=== PATIENT | male | born 1990 | race Caucasian/White ===

== ENCOUNTER 2019-03-24 03:31 | Emergency (ER) | payer BC, MEDICAID ==
[2019-03-24] MEDS ORDERED: Hydrocortisone/Neomycin/Polymyxin B Ophth Susp 7.5 ML Bottle ONE (03:32)
[2019-03-24] MEDS ORDERED: traMADol 50 MG Tab PO ONE (03:32)
[2019-03-24 03:45] VITALS: BP 136/79; PULSE 61
--- NOTE | 2019-03-24 03:51 | EDM.PDOC ---
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 Yesterday he was welding but he reports using protection Bilateral eyes Pain Score (Numeric/FACES): 7 - Related Data Allergies Allergy/AdvReac Type Severity Reaction Status Date / Time cefaclor [From Ceclor] Allergy Other Verified 03/24/19 03:39 Home Meds: Home Meds NK [No Known Home Meds] 02/02/15 [History] Past Medical History - Past Surgical History GI Surgical History: Reports: Appendectomy Social & Family History - Tobacco Use Smoking Status *Q: Never Smoker Second Hand Smoke Exposure: No - Caffeine Use Caffeine Use: Reports: Soda - Recreational Drug Use Recreational Drug Use: No ED ROS GENERAL - Review of Systems Review Of Systems: Comprehensive ROS is negative, except as noted in HPI. ED EXAM GENERAL W FULL EYE - Physical Exam Exam: See Below Exam Limited By: No Limitations General Appearance: Alert, WD/WN, No Apparent Distress Visual Acuity (R) 20/: 50 Visual Acuity (L) 20/: 30 With Correction: No Eyelids: Bilateral: Normal Appearance, Erythema Conjunctiva & Sclera: Bilateral: Injected Cornea Exam: Bilateral: Normal Appearance Extraocular Movements: Right: Disconjugate Gaze, Bilateral: Intact Pupils: Normal Accommodation Pupillary Size: Bilateral: 3 mm Pupillary Reaction: Bilateral: Brisk Anterior Chamber: Bilateral: Normal Appearance Posterior Chamber: Bilateral: Normal Funduscopic Ears: Normal External Exam Course - Vital Signs Last Recorded V/S: Last Vital Signs Temp 97.4 F 03/24/19 03:35 Pulse 61 03/24/19 03:35 Resp 18 03/24/19 03:35 BP 136/79 03/24/19 03:35 Pulse Ox 100 03/24/19 03:35 Departure - Departure Time of Disposition: 03:50 Disposition: Home, Self-Care 01 Condition: Good Clinical Impression: Conjunctivitis - Discharge Information Instructions: Ultraviolet Keratitis, [id number] Referrals: Guanako Wilks MD [Primary Care Provider] - Forms: ED Department Discharge Additional Instructions: May take Tramadol 50mg every 6 hours as needed for pain management. Use eye drops three times a day for three days to both eyes. Follow up as needed. - Problem List & Annotations (1) UV keratitis SNOMED Code(s): 3741419 Code(s): H16.139 - PHOTOKERATITIS, UNSPECIFIED EYE Status: Acute Qualifiers: Laterality: bilateral Qualified Code(s): H16.133 - Photokeratitis, bilateral - Problem List Review Problem List Initiated/Reviewed/Updated: Yes - Assessment/Plan Plan: After tetracaine ,he improved markedly. I sent him home on Cortisporin HC,and Tramadol for pain.
== END 2019-03-24 04:00 | disposition home or self-care (01) ==
LOC: FB.ED 03:31
DX: H10.9 Unspecified conjunctivitis (principal); Z88.1 Allergy status to other antibiotic agents
CPT/HCPCS: 99283; A9270-GY

== ENCOUNTER 2019-03-26 23:04 | Emergency (ER) | payer MEDICAID ==
[2019-03-26] MEDS ORDERED: methylPREDNISolone Sodium Succinate 125 MG/2 ML SDV IM ONE (23:21)
[2019-03-26] MEDS ORDERED: diphenhydrAMINE 50 MG Cap PO ONE (23:21)
--- NOTE | 2019-03-27 00:20 | EDM.PDOC ---
ED HPI GENERAL MEDICAL PROBLEM - General Chief Complaint: Allergic Reaction Stated Complaint: ALERGIC REACTION Time Seen by Provider: 03/26/19 23:10 Source of Information: Reports: Patient History Limitations: Reports: No Limitations - History of Present Illness INITIAL COMMENTS - FREE TEXT/NARRATIVE: Patient went to eat seafood tonight and went home with hives. he denied any choking,dyspnea. - Related Data Allergies Allergy/AdvReac Type Severity Reaction Status Date / Time cefaclor [From Ceclor] Allergy Other Verified 03/26/19 23:12 Home Meds: Home Meds Hydrocort/Neomycin/Polymyxin B [Cortisporin Ophth Susp] 1 drop EYEBOTH TID 03/26 [History] traMADol [Ultram] 50 mg Q6H PRN 03/26/19 [History] Past Medical History HEENT History: Reports: Other (See Below) Other HEENT History: flash flores to bilat eyes Musculoskeletal History: Reports: Fracture Other Musculoskeletal History: hx R thumb fx Endocrine/Metabolic History: Reports: Obesity/BMI 30+ - Infectious Disease History Infectious Disease History: Reports: Chicken Pox - Past Surgical History GI Surgical History: Reports: Appendectomy Musculoskeletal Surgical History: Reports: None Social & Family History - Family History Family Medical History: Noncontributory - Tobacco Use Smoking Status *Q: Former Smoker Years of Tobacco use: 3 Used Tobacco, but Quit: Yes Month/Year Tobacco Last Used: 2011 - Caffeine Use Caffeine Use: Reports: Soda - Alcohol Use Days Per Week of Alcohol Use: 1 Number of Drinks Per Day: 2 Total Drinks Per Week: 2 - Recreational Drug Use Recreational Drug Use: No ED ROS ALLERGIC REACTION - Review of Systems Review Of Systems: See Below Constitutional: Reports: No Symptoms HEENT: Reports: No Symptoms Respiratory: Reports: No Symptoms Cardiovascular: Reports: No Symptoms Endocrine: Reports: No Symptoms GI/Abdominal: Reports: No Symptoms : Reports: No Symptoms Musculoskeletal: Reports: No Symptoms Skin: Reports: Rash Neurological: Reports: No Symptoms Psychiatric: Reports: No Symptoms ED EXAM GENERAL NO PERIP PULSE - Physical Exam Exam: See Below Exam Limited By: No Limitations General Appearance: Alert, WD/WN, No Apparent Distress Ears: Normal External Exam, Normal Canal, Hearing Grossly Normal, Normal TMs Nose: Normal Inspection, Normal Mucosa, No Blood Throat/Mouth: Normal Inspection, Normal Lips, Normal Teeth, Normal Gums, Normal Oropharynx Head: Atraumatic, Normocephalic Neck: Normal Inspection, Supple, Non-Tender, Full Range of Motion Respiratory/Chest: No Respiratory Distress, Lungs Clear, Normal Breath Sounds Cardiovascular: Normal Peripheral Pulses, Regular Rate, Rhythm GI/Abdominal: Normal Bowel Sounds, Soft, Non-Tender, No Organomegaly, No Distention, No Abnormal Bruit Back Exam: Normal Inspection Neurological: Alert, Oriented, CN II-XII Intact Skin Exam: Other (hives) Course - Vital Signs Text/Narrative:: benadryl 50 mg po x1 solumedrol 125 mg IM x1 Last Recorded V/S: Last Vital Signs Temp 36.4 C 03/26/19 23:07 Pulse 79 03/26/19 23:07 Resp 16 03/26/19 23:07 BP 134/90 03/26/19 23:07 Pulse Ox 97 03/26/19 23:07 - Orders/Labs/Meds Meds: Medications Discontinued Medications Generic Name Dose Route Start Last Admin Trade Name Cynthia PRN Reason Stop Dose Admin Diphenhydramine HCl 50 mg 03/26/19 23:21 03/26/19 23:23 Benadryl PO 03/26/19 23:22 50 mg ONETIME ONE Administration Methylprednisolone Sodium Succinate 125 mg 03/26/19 23:21 03/26/19 23:24 Solu-Medrol IM 03/26/19 23:22 125 mg ONETIME ONE Administration Departure - Departure Time of Disposition: 00:15 Disposition: Home, Self-Care 01 Condition: Good Clinical Impression: Allergic reaction - Discharge Information Referrals: Guanako Wilks MD [Primary Care Provider] - Additional Instructions: please read discharge instructions on allergic reaction and hives take benadryl 50 mg every 4-6 hours as needed for hives and itching follow up as needed
[2019-03-27 02:05] VITALS: BP 106/56; PULSE 80
== END 2019-03-27 00:34 | disposition home or self-care (01) ==
LOC: FB.ED 23:04
DX: L50.0 Allergic urticaria (principal); E66.9 Obesity, unspecified; Z68.36 Body mass index [BMI] 36.0-36.9, adult; Z87.891 Personal history of nicotine dependence; Z88.8 Allergy status to other drugs, medicaments and biological substances
CPT/HCPCS: 96372; 99283-25; A9270-GY; J2930